=== PATIENT | female | born 1945 | race Caucasian/White ===

== ENCOUNTER → 2021-08-19 11:58 | Outpatient (CLI) | payer MEDICARE, OTHER, SELFPAY ==
--- NOTE | 2021-08-19 | DI.MG.S_ITS ---
BILATERAL DIGITAL SCREENING MAMMOGRAM 3D/2D WITH CAD: 08/19/2021 Comparison is made to exams dated: 11/07/2019 mammogram and 05/03/2018 mammogram - outside. There are scattered fibroglandular elements in both breasts. Current study was also evaluated with a Computer Aided Detection (CAD) system. There is a biopsy clip in the right breast. No significant masses, calcifications, or other findings are seen in either breast. There has been no significant interval change. IMPRESSION: NEGATIVE There is no mammographic evidence of malignancy. A 1 year screening mammogram is recommended. This exam was interpreted at Station ID: [id number]. NOTE: For mammograms, a report in lay terms will be sent to the patient. Approximately 15% of breast malignancies will not be visualized mammographically. In the management of a palpable breast mass, a negative mammogram must not discourage biopsy of a clinically suspicious lesion. Electronically Signed By: Catrachito pratt/gita:08/19/2021 14:48:37 letter sent: Normal Exam ACR BI-RADS Category 1: Negative 3341F
== END ==
PROVIDERS: PCP Internal Medicine; Referring Provider Internal Medicine; Visit Provider Internal Medicine
DX: Z12.31 Encounter for screening mammogram for malignant neoplasm of breast (principal)
CPT/HCPCS: 77063; 77067

== ENCOUNTER → 2022-10-15 11:25 | Outpatient (CLI) | payer MEDICARE, OTHER, SELFPAY ==
--- NOTE | 2022-10-15 11:28 | DI.MG.S_ITS ---
BILATERAL DIGITAL SCREENING MAMMOGRAM 3D/2D WITH CAD: 10/15/2022 CLINICAL: Routine screening. Comparison is made to exams dated: 08/19/2021 mammogram - [facility], 11/07/2019 mammogram, 05/23/2018 mammogram, and 05/03/2018 mammogram - outside. There are scattered areas of fibroglandular density in both breasts (category b / 25%-50% glandular tissue). Current study was also evaluated with a Computer Aided Detection (CAD) system. There is a biopsy clip in the right breast. No significant masses, calcifications, or other findings are seen in either breast. There has been no significant interval change. IMPRESSION: NEGATIVE There is no mammographic evidence of malignancy. A 1 year screening mammogram is recommended. Based on the Tyrer Cuzick model (a risk assessment model) the patient's lifetime risk is 3.7% and her 10 year risk is 3.7%. According to the ACR, ACS, and NCCN guidelines, an annual breast MRI exam along with mammogram is recommended if the patient's lifetime risk is 20% or greater. This exam was interpreted at Station ID: [id number]. NOTE: For mammograms, a report in lay terms will be sent to the patient. Approximately 15% of breast malignancies will not be visualized mammographically. In the management of a palpable breast mass, a negative mammogram must not discourage biopsy of a clinically suspicious lesion. Electronically Signed By: Leighton amezcua/gita:10/17/2022 09:47:47 letter sent: Normal Exam ACR BI-RADS Category 1: Negative 3341F
== END ==
PROVIDERS: PCP Internal Medicine; Referring Provider Internal Medicine; Visit Provider Internal Medicine
DX: Z12.31 Encounter for screening mammogram for malignant neoplasm of breast (principal)
CPT/HCPCS: 77063; 77067

== ENCOUNTER → 2023-10-16 11:01 | Outpatient (CLI) | payer MEDICARE, OTHER, SELFPAY ==
--- NOTE | 2023-10-16 | DI.MG.S_ITS ---
BILATERAL DIGITAL SCREENING MAMMOGRAM 3D/2D WITH CAD: 10/16/2023 CLINICAL: Routine screening. Comparison is made to exams dated: 10/15/2022 mammogram, 08/19/2021 mammogram - [facility], and 11/07/2019 mammogram - outside. There are scattered areas of fibroglandular density in both breasts (category b / 25%-50% glandular tissue). Current study was also evaluated with a Computer Aided Detection (CAD) system. There is a biopsy clip in the right breast. No significant masses, calcifications, or other findings are seen in either breast. There has been no significant interval change. IMPRESSION: NEGATIVE There is no mammographic evidence of malignancy. A 1 year screening mammogram is recommended. Based on the Tyrer Cuzick model (a risk assessment model) the patient's lifetime risk is 4.3% and her 10 year risk is 0.0%. According to the ACR, ACS, and NCCN guidelines, an annual breast MRI exam along with mammogram is recommended if the patient's lifetime risk is 20% or greater. This exam was interpreted at Station ID: [id number]. NOTE: For mammograms, a report in lay terms will be sent to the patient. Approximately 15% of breast malignancies will not be visualized mammographically. In the management of a palpable breast mass, a negative mammogram must not discourage biopsy of a clinically suspicious lesion. Electronically Signed By: Alise gomez/gita:10/16/2023 15:31:47 letter sent: Normal Exam ACR BI-RADS Category 1: Negative 3341F
== END ==
PROVIDERS: PCP Physician Assistant; Referring Provider Physician Assistant; Visit Provider Physician Assistant
DX: Z12.31 Encounter for screening mammogram for malignant neoplasm of breast (principal)
CPT/HCPCS: 77063; 77067

== ENCOUNTER → 2023-11-14 15:43 | Outpatient (CLI) | payer MEDICARE, OTHER, SELFPAY ==
[2023-11-14 16:52] LABS: Magnesium 2.3 mg/dL (1.6-2.3)
== END ==
PROVIDERS: PCP Physician Assistant; Referring Provider Internal Medicine Cardiovascular Disease; Visit Provider Internal Medicine Cardiovascular Disease
DX: I49.3 Ventricular premature depolarization (principal); R42 Dizziness and giddiness; R94.31 Abnormal electrocardiogram [ECG] [EKG]
CPT/HCPCS: 36415; 83735

== ENCOUNTER → 2024-05-31 11:57 | Outpatient (CLI) | payer MEDICARE, OTHER, SELFPAY ==
--- NOTE | 2024-05-31 11:59 | DI.MRI.S_ITS ---
PROCEDURE: MR THORACIC SPINE WO CON INDICATIONS: BACK PAIN TECHNIQUE: Noncontrast sagittal T1 spine echo and T2 fast spin echo, sagittal STIR, and T2 fast spin echo through the thoracic spine. COMPARISON: [facility], CR, XR SCOLIOSIS STUDY, 03/01/2024, 9:35. FINDINGS: Image quality: Excellent. Alignment and Curvature: Mild predominantly dextroconvex curvature of the thoracic spine. Bone Marrow: Marrow is of normal overall signal. No acute vertebral body compression fractures. Spinal Cord: Visualized spinal cord is normal in size and signal. Paraspinous Soft Tissues: No paravertebral masses. Small benign right renal cyst. Miscellaneous: Mild multilevel disc desiccation and degenerative endplate changes. On axial images, central canal and foramina appear widely patent at all scanned levels. IMPRESSION: Mild scoliotic curvature and mild multilevel spondylosis. No significant spinal canal stenosis or neural foraminal narrowing in the thoracic spine. Approved by: Catrachito Samson M.D. on 05/31/2024 at 22:10
--- NOTE | 2024-05-31 11:59 | DI.MRI.S_ITS ---
PROCEDURE: MR LUMBAR SPINE WO CON INDICATIONS: BACK PAIN TECHNIQUE: Noncontrast sagittal T1 spin echo and T2 fast echo, sagittal STIR, and T2 fast spin echo through the lumbar spine. In cases with scoliosis, additional coronal T2 fast spin echo may be performed. COMPARISON: [facility], CR, XR LUMBAR SPINE WITH FLEXION EXTENSION 5 VIEWS, 01/18/2024, 14:23. FINDINGS: Image quality: Excellent. Mild transitional spinal anatomy is present with a partially lumbarized S1 vertebral body. The 1st vxu-zox-lftrlcw vertebral body is designated as L1. Alignment and Curvature: Moderate shaped curvature of the thoracolumbar spine, levoconvex at the lower lumbar levels. 3 mm grade 1 retrolisthesis at L3-4. 4 mm grade 1 anterolisthesis at L5-S1. Bone Marrow: Marrow is of normal overall signal. No acute vertebral body compression fractures. Spinal Cord: Conus medullaris terminates at the L1-2 disc space level. Visualized cord demonstrates normal signal and size. Paraspinous Soft Tissues: No paravertebral masses. [id number] lesion in the medial spleen is considered benign. A benign right renal cyst is noted. There is mild to moderate fatty infiltration of the paraspinous musculature. T12-L1: Disc desiccation is seen without significant spinal canal stenosis or neural foraminal narrowing. L1-L2: Disc desiccation and circumferential disc bulging as well as mild bilateral facet hypertrophy. Findings result in mild right neural foraminal narrowing without significant left neural foraminal narrowing or spinal canal stenosis. L2-L3: Disc desiccation and mild circumferential disc bulging as well as bilateral facet hypertrophy. Findings result in minimal narrowing of the spinal canal as well as [id number]-[id number]-mamrcups right and mild left neural foraminal narrowing. L3-L4: Disc desiccation and circumferential disc bulging with moderate right greater than left facet hypertrophy and buckling of the ligamentum flavum. Findings result in mild narrowing of the spinal canal with effacement of the right lateral recess as well as severe right and mild left neural foraminal narrowing. L4-L5: Disc desiccation and mild circumferential disc bulging as well as moderate to severe bilateral facet hypertrophy that is greater on the right than on the left and buckling of the ligamentum flavum. Findings result in mild narrowing of the spinal canal with effacement of the right lateral recess a as well as moderate to severe right and alvp-zk-vfgdgxaz left neural foraminal narrowing. L5-S1: Disc desiccation and loss of disc space height with grade 1 anterolisthesis and uncovering of the disc space. Severe right and moderate to severe left facet hypertrophy and buckling of the ligamentum flavum. Findings result in moderate narrowing of the spinal canal with effacement of the lateral recesses that is greater on the right than on the left. There is moderate bilateral neural foraminal narrowing. IMPRESSION: 1. Multilevel moderate to severe degenerative disc disease and facet hypertrophy as described in detail in the body report with superimposed scoliotic curvature. 2. Spinal canal narrowing is worst and moderate at the L5-S1 level. 3. High-grade neural foraminal narrowing at the L3-4 and L4-5 levels on the right. Approved by: Catrachito Samson M.D. on 05/31/2024 at 22:19
== END ==
PROVIDERS: PCP Physician Assistant; Referring Provider Physician Assistant; Visit Provider Physician Assistant
DX: M47.814 Spondylosis without myelopathy or radiculopathy, thoracic region (principal); M47.27 Other spondylosis with radiculopathy, lumbosacral region; M47.26 Other spondylosis with radiculopathy, lumbar region; M51.16 Intervertebral disc disorders with radiculopathy, lumbar region; M48.07 Spinal stenosis, lumbosacral region; M48.061 Spinal stenosis, lumbar region without neurogenic claudication; M41.26 Other idiopathic scoliosis, lumbar region; M54.50 Low back pain, unspecified; M41.24 Other idiopathic scoliosis, thoracic region; M70.60 Trochanteric bursitis, unspecified hip; M76.30 Iliotibial band syndrome, unspecified leg; M25.551 Pain in right hip; M25.552 Pain in left hip; M53.3 Sacrococcygeal disorders, not elsewhere classified
CPT/HCPCS: 72146; 72148

== ENCOUNTER → 2024-10-26 09:16 | Outpatient (CLI) | payer MEDICARE, OTHER, SELFPAY ==
--- NOTE | 2024-10-26 09:17 | DI.MG.S_ITS ---
BILATERAL DIGITAL SCREENING MAMMOGRAM 3D/2D WITH CAD: 10/26/2024 CLINICAL: Routine screening. Comparison is made to exams dated: 10/16/2023 mammogram, 10/15/2022 mammogram, and 08/19/2021 mammogram - [facility]. There are scattered areas of fibroglandular density (category b / 25%-50% glandular tissue). Current study was also evaluated with a Computer Aided Detection (CAD) system. There is a biopsy clip in the right breast. No significant masses, calcifications, or other findings are seen in either breast. There has been no significant interval change. IMPRESSION: NEGATIVE There is no mammographic evidence of malignancy. A 1 year screening mammogram is recommended. Based on the Tyrer Cuzick model (a risk assessment model) the patient's lifetime risk is 3.9% and her 10 year risk is 0.0%. According to the ACR, ACS, and NCCN guidelines, an annual breast MRI exam along with mammogram is recommended if the patient's lifetime risk is 20% or greater. This exam was interpreted at Station ID: [id number]. NOTE: For mammograms, a report in lay terms will be sent to the patient. Approximately 15% of breast malignancies will not be visualized mammographically. In the management of a palpable breast mass, a negative mammogram must not discourage biopsy of a clinically suspicious lesion. Electronically Signed By: Gaurav araujo/gita:10/26/2024 23:18:48 letter sent: Normal Exam ACR BI-RADS Category 1: Negative
== END ==
PROVIDERS: PCP Physician Assistant; Referring Provider Physician Assistant; Visit Provider Physician Assistant
DX: Z12.31 Encounter for screening mammogram for malignant neoplasm of breast (principal)
CPT/HCPCS: 77063; 77067